=== PATIENT | male | born 1995 | race Caucasian/White ===

== ENCOUNTER 2017-10-06 12:09 | Emergency (ER) | payer MEDICAID ==
[2017-10-06 12:48] VITALS: BP 169/105
--- NOTE | 2017-10-06 14:31 | ED Physician Documentation ---
PD HPI MALE - Stated complaint Stated Complaint: MALE - Chief complaint Chief Complaint: General - History obtained from History obtained from: Patient - History of Present Illness Timing - onset: Last night Timing - duration: Days (/2) Timing - details: Gradual onset (he had been chopping wood last evening without noted injury, but then had some aching of left testicle last night and worse this morning.), Still present, Waxing and waning Associated symptoms: Testiclar pain, Back pain. No: Dysuria, Urinary frequency , Genital sore / lesion, Scrotal swelling PD HPI MALE CONTRIB FACTORS: No: Sexually active, Exposed to STD Similar symptoms before: Has not had sx before Recently seen: Not recently seen Review of Systems Constitutional: denies: Fever, Chills GI: denies: Nausea, Vomiting, Diarrhea : reports: Testicular pain. denies: Dysuria, Frequency, Discharge Skin: denies: Rash, Lesions PD PAST MEDICAL HISTORY - Past Medical History Past Medical History: No : None - Past Surgical History Past Surgical History: No - Present Medications Home Medications: Ambulatory Orders Medication Instructions Recorded Confirmed Doxycycline Monohydrate 100 mg PO BID #14 tablet 10/06/17 Ibuprofen [Motrin] 600 mg PO TID #20 tab 10/06/17 Tramadol HCl 50 mg PO Q6H PRN #20 tablet 10/06/17 - Allergies Allergies/Adverse Reactions: Allergies Allergy/AdvReac Type Severity Reaction Status Date / Time No Known Drug Allergies Allergy Verified 10/06/17 12:48 - Social History Does the pt smoke?: No Smoking Status: Never smoker PD ED PE NORMAL - Vitals Vital signs reviewed: Yes - General General: Alert and oriented X 3, No acute distress, Well developed/nourished - HEENT HEENT: Moist mucous membranes, Pharynx benign - Neck Neck: Supple, no meningeal sign, No adenopathy - Cardiac Cardiac: RRR, No murmur - Respiratory Respiratory: Clear bilaterally - Abdomen Abdomen: Soft, Non tender - Male Male : Other (left testicle area backside and above the testicle. Normal lie. No masses. ) - Rectal Rectal: Deferred - Back Back: No CVA TTP - Derm Derm: Normal color, Warm and dry Results - Vitals Vitals: Oxygen O2 Source Room air - Rads (name of study) testicle U/S Radiology: Prelim report reviewed (no acute process) PD MEDICAL DECISION MAKING - ED course Complexity details: reviewed results (normal testicle U/S), considered differential (has tenderness backside and above testicle on left in area of epididymis. U/S is normal. ), d/w patient Departure - Departure Disposition: 01 Home, Self Care Clinical Impression: Left testicular pain, Epididymitis, left Condition: Stable Record reviewed to determine appropriate education?: Yes Instructions: ED Epididymitis Follow-Up: [facility] [Provider Group] [facility] [Provider Group] Prescriptions: Doxycycline Monohydrate 100 mg PO BID #14 tablet Ibuprofen [Motrin] 600 mg PO TID #20 tab Tramadol HCl 50 mg PO Q6H PRN #20 tablet PRN Reason: Pain Comments: Scrotal support such as briefs rather than boxers can be helpful. It does seem like the to be some inflammation of the epididymis given the location of it. There is good blood flow based on ultrasound and no other structural abnormality. I do not feel any hernias. Epididymitis can be inflammatory and sometimes infectious. Use ibuprofen or naproxen 2-3 times a day. I wrote a prescription though it is available [id number] as well. Add doxycycline antibiotic twice daily for a week. For pain above that you can add Tylenol and/ or tramadol. Recheck if not improved over the next 3-5 days. Discharge Date/Time: 10/06/17 15:15
[2017-10-06] MEDS ORDERED: ACETAMINOPHEN 325 MG TABLET PO STA (14:41)
[2017-10-06] MEDS ORDERED: DOXYCYCLINE 100 MG TABLET PO STA (14:41)
[2017-10-06] MEDS ORDERED: IBUPROFEN 600 MG TABLET PO STA (14:41)
--- NOTE | 2017-10-06 17:11 | Ultrasound Report ---
SCROTAL DUPLEX: 10/06/2017 CLINICAL INDICATION: Pain. TECHNIQUE: Real-time scanning with Doppler was performed with technical service representative static images obtained. FINDINGS: The right testicle measures 4.0 x 2.8 x 1.8 cm, and the left testicle measures 4.4 x 3.0 x 2.1 cm. Both testicles demonstrate normal flow and echotexture. The epididymides are unremarkable. No hydrocele, varicocele, or hernia is identified. IMPRESSION: NORMAL SCROTAL DUPLEX. TD: 10/06/2017 17:09 [facility]
== END 2017-10-06 15:15 | disposition home or self-care (01) ==
LOC: ED 12:09
DX: N45.1 Epididymitis (principal); N50.812 Left testicular pain
CPT/HCPCS: 76870; 93975; 99283; A9270

== ENCOUNTER 2019-07-11 12:55 | Outpatient (CLI) | payer MEDICAID ==
--- NOTE | 2019-07-12 00:40 | XRAY Report ---
Reason: NECK PAIN Procedure Date: 07/11/2019 Accession Number: [id number] / [id number] Procedure: XRN - Cervical Spine 2 View CPT Code: Final Report FULL RESULT: EXAM: CERVICAL SPINE RADIOGRAPHY EXAM DATE: 07/11/2019 01:12 PM. CLINICAL HISTORY: NECK PAIN. COMPARISONS: None. TECHNIQUE: 3 views. FINDINGS: Alignment: No spondylolisthesis or scoliosis. Bones: The cervical vertebral bodies and posterior elements are well visualized from the skull base through C7-T1. No acute displaced fractures. Disks: Disk heights are maintained. Facets: No degenerative disease. Soft Tissues: No prevertebral soft tissue swelling. The visualized lung apices are clear. IMPRESSION: Unremarkable cervical spine radiography. [facility]
== END 2019-07-11 12:56 | disposition home or self-care (01) ==
LOC: DI.N 12:55
PROVIDERS: ATTEND Family Medicine
DX: M54.2 Cervicalgia (principal)
CPT/HCPCS: 72040

== ENCOUNTER → 2019-07-11 | Outpatient (CLI) | payer MEDICAID ==
[2019-07-11 12:15] LABS: BASOPHILS # (AUTO) 0.1 10^3/uL (0.0-0.1); EOSINOPHILS # (AUTO) 0.2 10^3/uL (0.0-0.7); EOSINOPHILS % (AUTO) 2.5 %; HGB - HEMOGLOBIN 16.9 g/dL (14.0-18.0); LYMPHOCYTES # (AUTO) 2.6 10^3/uL (1.5-3.5); LYMPHOCYTES % (AUTO) 35.6 %; MEAN CORPUSCULAR HEMOGLOBIN 27.8 pg (27.0-31.0); MEAN CORPUSCULAR HGB CONC 33.4 g/dL (32.0-36.0); MEAN CORPUSCULAR VOLUME 83.1 fL (80.0-94.0); MEAN PLATELET VOLUME 10.7 fL (7.4-11.4); MONOCYTES # (AUTO) 0.5 10^3/uL (0.0-1.0); MONOCYTES % (AUTO) 6.8 %; NEUTROPHILS # (AUTO) 3.9 10^3/uL (1.5-6.6); NEUTROPHILS % (AUTO) 53.8 %; PLT - PLATELET COUNT 223 10^3/uL (130-450); RED BLOOD COUNT 6.09 10^6/uL (4.70-6.10); RED CELL DISTRIBUTION WIDTH 12.8 % (12.0-15.0); WHITE BLOOD COUNT 7.2 x10^3/uL (4.8-10.8)
[2019-07-11 12:17] LABS: ALBUMIN 4.9 g/dL (3.2-5.5); ALBUMIN/GLOBULIN RATIO 1.6 (1.0-2.2); BILIRUBIN,TOTAL 0.8 mg/dL (0.2-1.0); CALCIUM 9.5 mg/dL (8.5-10.3); CREATININE 1.2 mg/dL (0.6-1.2)
== END ==
LOC: LAB.N 08:00
PROVIDERS: ATTEND Family Medicine
DX: R42 Dizziness and giddiness (principal)
CPT/HCPCS: 36415; 80053; 84443; 85025

== ENCOUNTER 2021-07-06 08:00 | Outpatient (CLI) | payer MEDICAID ==
[2021-07-06 18:37] LABS: BASOPHILS # (AUTO) 0.1 10^3/uL (0.0-0.1); BASOPHILS % (AUTO) 1.1 %; EOSINOPHILS # (AUTO) 0.1 10^3/uL (0.0-0.7); EOSINOPHILS % (AUTO) 2.2 %; HCT - HEMATOCRIT 47.9 % (42.0-52.0); LYMPHOCYTES # (AUTO) 1.5 10^3/uL (1.5-3.5); LYMPHOCYTES % (AUTO) 28.2 %; MEAN CORPUSCULAR HEMOGLOBIN 27.4 pg (27.0-31.0); MEAN CORPUSCULAR HGB CONC 33.4 g/dL (32.0-36.0); MEAN PLATELET VOLUME 10.6 fL (7.4-11.4); MONOCYTES # (AUTO) 0.3 10^3/uL (0.0-1.0); MONOCYTES % (AUTO) 6.3 %; NEUTROPHILS # (AUTO) 3.3 10^3/uL (1.5-6.6); NEUTROPHILS % (AUTO) 61.8 %; PLT - PLATELET COUNT 230 10^3/uL (130-450); RED BLOOD COUNT 5.84 10^6/uL (4.70-6.10); RED CELL DISTRIBUTION WIDTH 12.6 % (12.0-15.0); WHITE BLOOD COUNT 5.4 x10^3/uL (4.8-10.8)
[2021-07-06 19:21] LABS: ALBUMIN 4.6 g/dL (3.2-5.5); ALBUMIN/GLOBULIN RATIO 1.6 (1.0-2.2); BILIRUBIN,TOTAL 0.9 mg/dL (0.2-1.0); CALCIUM 9.3 mg/dL (8.5-10.3); POTASSIUM 4.2 mmol/L (3.5-5.0); TOTAL PROTEIN 7.5 g/dL (6.7-8.2)
== END 2021-07-06 23:59 | disposition home or self-care (01) ==
LOC: LAB.N 08:00
PROVIDERS: ATTEND Family Medicine
DX: R10.11 Right upper quadrant pain (principal)
CPT/HCPCS: 36415; 80053; 82150; 83690; 85025

== ENCOUNTER 2021-07-16 06:49 | Outpatient (CLI) | payer MEDICAID ==
--- NOTE | 2021-07-16 09:40 | Ultrasound Report ---
PROCEDURE: Abdomen Limited INDICATIONS: RUQ ABD PAIN TECHNIQUE: Real-time focused scanning was performed of the abdomen, with image documentation. COMPARISON: None. FINDINGS: Diffusely increased hepatic parenchymal echogenicity. No hepatic mass. No intrahepatic or extrahepatic biliary ductal dilatation. Gallbladder is normal in appearance. No sludge or gallstone. Visualized portions of the pancreas are unremarkable. Right kidney is normal. IMPRESSION: Mild to moderate hepatic steatosis. Otherwise normal study. Reviewed by: Deshawn Hong MD on 07/16/2021 9:39 AM [facility] Approved by: Deshawn Hong MD on 07/16/2021 9:39 AM [facility] Station ID: [id number]
== END 2021-07-16 06:50 | disposition home or self-care (01) ==
LOC: DI 06:49
PROVIDERS: ATTEND Family Medicine
DX: K76.0 Fatty (change of) liver, not elsewhere classified (principal)